=== PATIENT | male | born 1960 | race Caucasian/White ===

== ENCOUNTER 2017-09-23 07:23 | Outpatient (CLI) | payer BC ==
--- NOTE | 2017-09-23 08:38 | ULT ---
ABDOMINAL ULTRASOUND: History: Right upper quadrant pain. FINDINGS: Patient is post cholecystectomy. Common bile duct is within normal range at 4-5 mm. Liver is homogene ous and appears unremarkable. Aorta and IVC are only partially imaged but appear unremarkable as visu alized. Pancreas is obscured. Spleen appears unremarkable. Both kidneys are imaged and appear unremar kable. No hydronephrosis. IMPRESSION: Unremarkable abdominal ultrasound. POS: [facility]
== END 2017-09-23 07:24 | disposition home or self-care (01) ==
LOC: ULT 07:23
PROVIDERS: ATTEND Family Medicine
DX: R10.11 Right upper quadrant pain (principal)
CPT/HCPCS: 76700

== ENCOUNTER 2017-10-30 09:31 | Outpatient (CLI) | payer BC | END 2017-10-30 09:32 | disposition home or self-care (01) | LOC: BICRAD 09:31 | PROVIDERS: ATTEND Family Medicine | DX: R10.84 Generalized abdominal pain (principal) | CPT/HCPCS: 71046 ==

== ENCOUNTER 2018-06-30 14:31 | Inpatient (IN) | payer BC ==
[~2018-06-30 14:31] MED LIST: ISOVUE-370 76%-LOCM 1 ML ONE
[2018-06-30 15:19] LABS: Hemoglobin 17.7 g/dL (14.0-18.0); Mean Corpuscular HGB CONC 33.1 g/dL (32.0-36.0); Mean Corpuscular Volume 93.6 fL (78.0-98.0); Mean Platelet Volume 8.1 fL (7.4-10.4); Platelet Count 267 thou/uL (130-400); RBC Distribution Width 11.6 % (11.5-14.5); White Blood Cell (WBC) Count 14.2 thou/uL (4.8-10.8)
[2018-06-30] MEDS ORDERED: Ondansetron HCl/PF 4 MG/2 ML Vial ONE (15:24)
[2018-06-30 15:39] LABS: ALT (SGPT) 62 U/L (8-55); AST (SGOT) 77 U/L (5-34); Albumin 5.2 g/dL (3.5-5.0); Alkaline Phosphatase 68 U/L (40-150); Anion Gap 17 mmol/L (10-20); BUN (Urea Nitrogen) 19 mg/dL (8.4-25.7); Bilirubin, Total 1.3 mg/dL (0.2-1.2); Calc. Creatinine Clearance 0 mL/min (70-130); Calcium 10.6 mg/dL (7.8-10.44); Carbon Dioxide 24 mmol/L (22-29); Chloride 102 mmol/L (98-107); Estimated GFR-MDRD 49; Globulin 3.4 g/dL (2.4-3.5); Glucose 162 mg/dL (70-105); Lipase 16 U/L (8-78); Potassium 4.3 mmol/L (3.5-5.1); Protein, Total 8.6 g/dL (6.0-8.3); Sodium 139 mmol/L (136-145)
[2018-06-30 15:44] LABS: Band 9 % (5-11); Eosinophils 1 % (0-10); Lymphocytes 4 % (21-51); MDiff Complete? YES; Monocytes 3 % (0-10); Neutrophil 83 % (42-75); PLT Morphology Comment Appears Adequate
[2018-06-30] MEDS ORDERED: Lidocaine Viscous Sol 2% 15 ml UD Cup ONE (16:02)
--- NOTE | 2018-06-30 16:43 | CT ---
CT OF ABDOMEN AND PELVIS PERFORMED WITH IV CONTRAST ENHANCEMENT: Date: 06/30/18 HISTORY: Abdominal pain, cramping, vomiting, and diarrhea. FINDINGS: The lung bases are clear of any infiltrative process. The liver and spleen show no focal abnormalities. They are within normal limits of size. The pancreas shows no evidence of mass or ductal dilatation. The gallbladder has been removed. Right and left adrenal glands, and right and left kidneys are normal in size. Small hypodensity invol ving the lower pole left kidney is most likely a small cyst. There is no significant periaortic or me senteric lymphadenopathy. There is proximal small bowel distention, which the loops of bowel are somewhat fluid-filled. There i s a mild transition to more normal caliber ileum. The transition point occurs close to axial image 64 . At this level, there is somewhat abnormal appearing enhancement to the mucosa, and the wall of the colon over a fairly long segment in this area is somewhat more thick-walled than typically seen. Ther e is no pneumatosis. I do not see any signs of any vascular occlusion and there is no fat stranding w ithin the mesentery. CT of pelvis was performed with contrast enhancement. The appendix is normal. There is no adenopathy or mass. There is some trace free fluid present. IMPRESSION: Abnormalities of the small bowel. In this case, there is fluid-filled distention of the proximal smal l bowel with mild transition to less distended mid to distal ileum. Some of these mid to distal ileal loops show somewhat abnormal enhancement to the mucosa and are mildly thick-walled considering the d egree of decompression. I think the primary considerations would be some type of infectious enteritis and inflammatory enteritis entities such as Crohn's would have to be considered, although the termin al ileum appears less affected. In the proper setting, ischemic valve could have this appearance prem y on, although I do not see any other features that would suggest ischemia. I do not see any signs of any vascular occlusion, pneumatosis, or any edema change within the mesenteric fat to suggest this p ossibility. Clinical correlation would be recommended. POS: [facility]
--- NOTE | 2018-06-30 16:58 | RAD ---
CHEST 1 VIEW: Date: 06/30/18 HISTORY: Vomiting. NG tube placement. COMPARISON: 04/30/07. FINDINGS: NG tube with the distal tip likely at the GE junction. Advancement is recommended. Normal cardiac silhouette. Lungs and pleural spaces are clear. No pneumothorax or osseous abnormaliti es. IMPRESSION: Nasogastric tube as above. Consider advancing NG tube. POS: [facility]
[2018-06-30] MEDS ORDERED: Morphine 10 MG/ML VIAL ONE (19:04)
[2018-06-30 20:50] VITALS: BMI 30.7
[2018-06-30] MEDS ORDERED: Lorazepam 2 MG/ML VIAL SLOW IVP PRN (21:03)
[2018-06-30] MEDS: Sodium Chloride 0.9% 1,000 ML IV SCH (21:08)
[2018-06-30] MEDS ORDERED: Morphine 4 MG/ML Carpuject SLOW IVP PRN (21:10)
[2018-06-30 21:16] LABS: Bilirubin Large (Negative); Blood, Urine Negative (Negative); Clarity CLEAR (Clear); Glucose, Urine (Dipstick) Negative (Negative); Leukocyte Negative (Negative); Nitrite Negative (Negative); Protein, Urine (Dipstick) Negative (Neg-Trace); Urobilinogen 0.2 mg/dL (0.2-1.0)
[2018-06-30 21:17] LABS: Specific Gravity, Urine Greater than 1.060 (1.002-1.036)
[2018-06-30] MEDS ORDERED: Ondansetron ODT 4 MG TAB SL PRN (21:33)
[2018-06-30] MEDS ORDERED: Ondansetron HCl/PF 4 MG/2 ML Vial IVP PRN (21:33)
[2018-07-01] MEDS: Sodium Chloride 0.9% 1,000 ML IV SCH ×2 (00:10→06:27)
--- NOTE | 2018-07-01 02:50 | HP ---
DATE OF ADMISSION: 06/30/2018 PRIMARY CARE PHYSICIAN: Dr. Shawn Bartlett. CHIEF COMPLAINT: Abdominal pain, nausea, and vomiting. HISTORY OF PRESENT ILLNESS: This is a 58-year-old gentleman with a history of gastroesophageal reflu x disease, hypogonadism, who presents to the emergency department with worsening abdominal pain, naus ea, and vomiting. The patient states that he had an episode of diarrhea over the weekend about 3or 4 days ago it only lasted 1-2 days. He had no fevers, no bloody stools. The diarrhea resolved sponta neously. Then, today after eating breakfast, he developed some abdominal pain presented to Urgent Ca re for evaluation because of the pain continued to worsen. While in Urgent Care, he developed persis tent nausea and vomiting and they sent him to the emergency department for further evaluation. In ED, he was found to be [id number] dehydrated. On CT, he was found to have a small-bowel ob struction with thickened areas in the loops of small bowel. He is now being admitted for further rashi luation for acute small-bowel obstruction. He has had significant improvement of his symptoms with I V fluids as well as IV morphine and NG tube placement to suction. PAST MEDICAL HISTORY: Again hypogonadism on testosterone replacement, gastroesophageal reflux diseas e, persistent joint pains. MEDICATIONS: Include Ambien 10 mg at bedtime, omeprazole 40 mg daily, etodolac twice a day for pain, AndroGel once daily. ALLERGIES: PENICILLIN. PAST SURGICAL HISTORY: He had abdominal hernia about 10 years ago, right shoulder repair, history of cholecystectomy, EGD, and colonoscopy. SOCIAL HISTORY: He is , works at the [employer]. Drinks occasionally. No smoking, no other drug use. FAMILY HISTORY: Noncontributory. REVIEW OF SYSTEMS: As per the history of present illness. General: He denies any recent fevers, ch ills, or recent illness. HEENT: No headache, visual, or hearing changes. No history of upper respi ratory infection. Cardiac: Denies chest pain, shortness of breath, or palpitations. Pulmonary: De nies cough or hemoptysis. Gastrointestinal: As per the history of present illness. He denies any m sy. Respiratory: Denies history of ulcer disease. Genitourinary: He denies dysuria or hematuri a. Neurologic: No weakness, seizures, or syncope. PHYSICAL EXAMINATION: VITAL SIGNS: In the ED, temperature 97.5, pulse of 101, respirations 18, blood pressure 128/95, puls e ox 98% on room air. GENERAL: He is awake and alert, no acute distress. He appears comfortable lying in bed. NG tube is in place. Mucosa is moist. NECK: Supple. HEART: Regular rate and rhythm. LUNGS: Clear. ABDOMEN: With no bowel sounds, soft, diffuse tenderness, no rebound, no guarding. No peritoneal sig ns. No hepatosplenomegaly. EXTREMITIES: No clubbing, cyanosis, or edema, 2+ peripheral pulses bilaterally. LABORATORY AND X-RAY FINDINGS: White blood cell count elevated at 14,200, hemoglobin and hematocrit 17.7 and 53.4 with 83% neutrophils, 9% bands, 4% lymphocytes, platelets of 267. Sodium 139, potassiu m 4.3, chloride 102, CO2 of 24, BUN and creatinine 19 and 1.46 with a GFR of 49. Serum glucose of 16 2, calcium of 10.6 with an albumin of 5.2. AST and ALT are slightly elevated at 77 and 62 with a tot al bilirubin of 1.3, alkaline phosphatase is 68. Lipase is 16. Chest x-ray shows NG tube in place. NG tube was advanced after the chest x-ray. CT of the abdomen and pelvis done in the ED revealed ab normalities of the small bowel with fluid-filled distention, has normal enhancement with mild thicken ed wall consistent with enteritis, infectious versus inflammatory. ASSESSMENT AND PLAN: 1. This is a 58-year-old gentleman with an acute small-bowel obstruction and thickened wall of the s mall intestine. Plan, Dr. Martinez has been notified and he will be following with the patient as well. We will continue NG tube for decompression of his stomach. 2. Enteritis. We will start IV Levaquin and monitor, consult GI for evaluation as well. 3. Dehydration. We will continue IV fluid replacement while he is n.p.o. 4. History of gastroesophageal reflux disease. We will continue proton pump inhibitor therapy.
[2018-07-01 04:52] LABS: #Basophils 0.1 thou/uL (0.0-0.2); #Eosinphils 0.1 thou/uL (0.0-0.7); #Lymphocytes 1.6 thou/uL (1.20-3.40); #Monocytes 1.2 thou/uL (0.11-0.59); #Neutrophils 6.3 thou/uL (1.40-6.50); %Basophils 0.7 % (0.0-1.0); %Eosinophils 0.7 % (0.0-10.0); %Lymphocytes 17.3 % (21.0-51.0); %Neutrophils 68.3 % (42.0-75.0); Mean Corpuscular Hemoglobin 30.9 pg (27.0-31.0); Mean Corpuscular Volume 93.5 fL (78.0-98.0); Mean Platelet Volume 8.4 fL (7.4-10.4); Platelet Count 244 thou/uL (130-400); RBC Distribution Width 11.5 % (11.5-14.5); Red Blood Cell (RBC) Count 4.84 mill/uL (4.70-6.10); White Blood Cell (WBC) Count 9.3 thou/uL (4.8-10.8)
[2018-07-01 05:10] LABS: ALT (SGPT) 37 U/L (8-55); AST (SGOT) 37 U/L (5-34); Albumin 3.9 g/dL (3.5-5.0); Alkaline Phosphatase 45 U/L (40-150); Anion Gap 12 mmol/L (10-20); BUN (Urea Nitrogen) 19 mg/dL (8.4-25.7); Calc. Creatinine Clearance 109 mL/min (70-130); Calcium 8.5 mg/dL (7.8-10.44); Carbon Dioxide 24 mmol/L (22-29); Chloride 109 mmol/L (98-107); Estimated GFR-MDRD 74; Globulin 2.5 g/dL (2.4-3.5); Glucose 136 mg/dL (70-105); Potassium 4.2 mmol/L (3.5-5.1); Protein, Total 6.4 g/dL (6.0-8.3); Sodium 141 mmol/L (136-145)
[2018-07-01] MEDS: Pantoprazole 40 MG VIAL IVP SCH (08:39)
--- NOTE | 2018-07-01 09:04 | PRG ---
DATE OF SERVICE: 07/01/2018 SUBJECTIVE: A 58-year-old white male with a 2-day history of diarrhea. Friday evening he had C&J' s barbeque. On Friday and Friday he had diarrhea throughout the day, which then resolved. However, o n Friday morning he awoke with abdominal pain and presented to Urgent Care and was found to have a s mall-bowel obstruction. His diarrhea at that time had completely resolved. No reported history of f ever. He did have nausea and vomiting on Friday, which resolved. This morning the patient is feelin g much better. An NG tube is in place. He has received IV Levaquin. He does not recall giving any stool samples for cultures. OBJECTIVE: VITAL SIGNS: Temperature 98.3, pulse 90, respirations 18, pulse ox 93, blood pressure 120/70. GENERAL: No acute distress other than the NG tube in place. HEART: Regular rate and rhythm. LUNGS: Clear. ABDOMEN: Soft, nontender. EXTREMITIES: No edema. LABORATORY: White count decreased from 14.2 to 9.3. Electrolytes normal. Sodium 141, potassium 4.2 , CO2 24, creatinine 1.02, BUN 19. ASSESSMENT: 1. Small-bowel obstruction with abnormal CT showing small bowel wall thickening. Rule out infectiou s diarrhea, rule out Crohn's. The patient has had a GI workup in the past 2 years which was found to be unremarkable. 2. Diarrhea, rule out infection. 3. Dehydration. PLAN: 1. Consult General Surgery and consult GI. 2. Stool studies. 3. Continue IV hydration and antibiotics.
[2018-07-01] MEDS ORDERED: MD-Gastroview 120 ML BOT ONE (10:18)
--- NOTE | 2018-07-01 12:23 | RAD ---
SMALL BOWEL FOLLOW-THROUGH: HISTORY: Small bowel obstruction. COMPARISON: CT from the prior day. TECHNIQUE: The patient was given Gastrografin enteric contrast through the enteric tube. FINDINGS: There was quick transit of contrast through the small bowel. Within one hour, there was contrast wit hin the large bowel. IMPRESSION: No evidence of small bowel obstruction. POS: [facility]
--- NOTE | 2018-07-01 17:48 | CON ---
DATE OF CONSULTATION: 07/01/2018 SURGERY ATTENDING: Jemal Martinez DO ADMITTING PHYSICIAN: Yousif Garcia D.O. PRIMARY CARE PHYSICIAN: Shawn Bartlett M.D. REASON FOR CONSULTATION: Small-bowel obstruction. 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 The patient states over 2-3 days started having abdominal pain, worsening yesterday necessitating a trip to the emergency depart [facility]. It was associated with diarrhea, nausea, and large amount of vomiting. In the emergency depar tment, he had a large volume of emesis. An NG tube was placed and a CT scan demonstrated evidence of a bowel obstruction. The patient was admitted to Medicine, started on IV fluids, kept n.p.o., Levaq uin pain control. The patient's nausea has subsided. His gastric output was brisk initially, but rand s started to reside. Leukocytosis has improved. The patient is afebrile at home and T-max here is 9 9.5, states that he is feeling somewhat better. He has not passed flatus nor had a stool. His last normal stool was formed and yesterday. He has had no recent weight loss. No change in caliber of hi s stool and no hematochezia or hematemesis. No melena is reported. Patient has no chest pain, no br eathing trouble. He is feeling better. A small bowel follow through has been ordered for today. REVIEW OF SYSTEMS: Pertinent positive and negative per the HPI, otherwise regarded as negative on 12 -point review of systems. PAST MEDICAL HISTORY: 1. Gastroesophageal reflux disease and 2. Hypogonadism. PAST SURGICAL HISTORY: 1. Right shoulder repair. 2. Cholecystectomy. 3. Hernia repair 10 years ago, epigastric. ALLERGIES: PENICILLINS, causing a rash. MEDICATIONS: Ambien 5 mg nightly, testosterone gel 25 mg daily, Protonix 20 mg daily, Adalat 300 mg twice daily. FAMILY HISTORY: Father with type 2 diabetes and coronary artery disease. Paternal grandfather with NV. Maternal grandfather with lung and colon cancer and smoking. Mother was healthy. 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 He is a former smoker, quitting greater than 20 years ago. Socially drinks alcohol and denies any other illicit drug uses. PHYSICAL EXAMINATION: VITAL SIGNS: Most recent temperature is 98.4, blood pressure is 140/88, respiratory rate is 16, hear t rate is 90, and satting 96% on room air. GENERAL: A 58-year-old male sitting up in bed in no acute distress. He does have an NG tube in plac e. HEENT: Normocephalic, atraumatic. Trachea is midline. NECK: No JVD is appreciated. RESPIRATORY: Equal rise and fall bilaterally. Breath sounds clear to auscultation upper and lower b ilaterally. No rubs or wheezes and normal effort. CARDIOVASCULAR: Regular rate and rhythm. No murmurs are appreciated. Strong peripheral pulses and no edema. ABDOMEN: Soft, nontender. He has positive bowel sounds in all quadrants. No peritoneal signs are a ppreciated. GENITOURINARY: Deferred. NEUROLOGIC: Moves all extremities well. No gross deficits are appreciated. PSYCHIATRIC: Normal mood and affect. NEUROLOGIC: Alert and oriented to person, place, time, and event. SKIN: [place], warm and dry. DIAGNOSTIC DATA: Initial white blood cell count is 14,200 and is down to 9.3 today. Platelets are 2 44 this morning, hemoglobin and hematocrit 15.0 and 45.3 respectively. Chemistries today sodium 141, potassium 4.2, chloride is 109, CO2 is 24, BUN is 19, and creatinine initially 1.46 and 1.02, glucos e is 136, ALT 37, total bilirubin 1.0. CT does show air fluid levels. A chest x-ray from yesterday, which is clear. ASSESSMENT AND PLAN: 1. Small-bowel obstruction that is resolving. 2. Clinical dehydration that is improving. 3. History of gastroesophageal reflux disease and hypogonadism. RECOMMENDATIONS: 1. No increase in GI output. The patient is feeling better with no further nausea. A small bowel f ollow through demonstrates Gastrografin into the large intestine at 45 minutes. Therefore, removed t o the NG tube. 2. Start clear liquid diet and advance as tolerated. 3. The patient needs to have a bowel movement prior to discharge. 4. Recommend ambulation. 5. Continue Levaquin for now. The remainder of the supporting care per the primary team. We will continue to follow along until di deonterge. We appreciate the opportunity to assist in Mr. Yu's care. Mr. Yu was seen and evalua ulysses with Dr. Martinez at the bedside.
--- NOTE | 2018-07-01 20:26 | CON ---
DATE OF CONSULTATION: 07/01/2018 REASON FOR CONSULTATION: Bowel obstruction. HISTORY: Mr. Yu is a 58-year-old male who is known to me from outpatient evaluation. He was in h is usual state of health until yesterday when he developed sudden onset of diffuse abdominal cramps a ssociated with his distention. He had ensuing nausea. He presented to urgent care at which time he proceeded to have 2 episodes of bilious emesis. He denies any fever or chills. Leading up to this e vent, he has had 2 episodes of loose stool in the preceding day. Patient had an abdominopelvic CT wi th contrast in the emergency room that showed a transition zone in the distal ileum. He had a small bowel series early today that demonstrated normal flow through the small bowel into the colon without any evidence of obstruction. Currently, he feels fine, almost back to his baseline. He is doing well otherwise from discharge standpoint. There is no further nausea or vomiting. His a ppetite had been normal. His bowel function had been normal. There is no indication of GI bleeding. The patient had a negative EGD and colonoscopy in 09/2017. Last year, he had a negative outpatient CT and ultrasound in 04/2017 for evaluation of chronic recurrent but infrequent right upper quadrant pain. This was assumed to be adhesions from his previous cholecystectomy in 2005. PAST MEDICAL HISTORY: 1. GE reflux disease. 2. Status post cholecystectomy in 2005. 3. Abdominal wall hernia repair 10 years ago. 4. Right shoulder surgery. ALLERGIES: PENICILLIN. MEDICATIONS AT HOME: Include etodolac b.i.d., AndroGel daily, omeprazole 40 mg every day, and Ambien 10 mg at bedtime p.r.n. SOCIAL HISTORY: Patient is . He has infrequent alcohol consumption. No tobacco usage. FAMILY HISTORY: Negative for any known GI problem, liver disease, GI malignancy. REVIEW OF SYSTEMS: Ten-point review of systems did not show any other pertinent positive or negative . PHYSICAL EXAMINATION: VITAL SIGNS: Temperature is 98.4, blood pressure 140/88, pulse of 90. GENERAL: He is alert, conversant, in no distress. HEENT: Shows anicteric sclerae. Oropharynx is clear. NECK: Supple. CARDIOVASCULAR: Shows normal S1, S2. Regular rate and rhythm. CHEST: Shows breath sounds. ABDOMEN: Soft, no tympany. He has bowel sounds. There is no tenderness. No hepatosplenomegaly by palpation. EXTREMITIES: Shows no edema. LABORATORY DATA: WBC is 9.3, hemoglobin 15, hematocrit 45.3%, platelet count of 244. Electrolytes w ithin normal range, creatinine 1.02. LFTs are normal, lipase of 16. IMAGING DATA: Abdominopelvic CT yesterday showed suggestion transition zone in the distal ileum with proximal dilation associated with some abnormal enhancement of the mucosa. Small bowel series today was normal with good flow of contrast into the colon. ASSESSMENT: Patient admitted with clinical features and radiographic evidence of distal small-bowel obstruction. I suspect this is likely from adhesions rather than from any inflammatory or infectious process. It is very unlikely that he has any small bowel Crohn's disease. Currently, he feels fine with small bowel series not demonstrating any ongoing small bowel obstruction. RECOMMENDATIONS: 1. Advance diet to full liquids and a regular diet in the morning. If he can tolerate this, can be discharged to home. 2. At the present time, no further evaluation is indicated from GI standpoint. However, if he shows recurrent signs of obstruction or pain, we will further evaluate for small bowel inflammatory diseas e such as Crohn's.
[2018-07-02 07:38] VITALS: BP 115/74; TEMP 97.9
[2018-07-02] MEDS: Pantoprazole 40 MG VIAL IVP SCH (08:12)
--- NOTE | 2018-07-02 12:09 | DIS ---
DATE OF ADMISSION: 06/30/2018 DATE OF DISCHARGE: 07/02/2018 DISCHARGE DIAGNOSES: 1. Small-bowel obstruction, resolved. 2. Abdominal adhesions. 3. Diarrhea, resolved. 4. Dehydration, resolved. CONSULTANTS: Dr. Martinez and Dr. Hirsch. DISCHARGE MEDICATIONS: Ambien 10 at bedtime p.r.n., omeprazole 40 daily, etodolac 400 b.i.d. p.r.n., AndroGel daily. BRIEF HISTORY: A 58-year-old white male with history of reflux, hypogonadism, presents to the emerge ncy room with worsening abdominal pain, nausea and vomiting. He had an episode of diarrhea 3-4 days prior, which resolved. He had no fever or bloody stools. Then, on the day of admission after breakf ast, he developed acute onset of abdominal pain, which became progressively worse and presented to [facility]. He was referred to the ER. In the Emergency Department, he was found to have mild to moderately dehydrated and a CT scan revealed small-bowel obstruction with thickened areas of small b owel. HOSPITAL COURSE: The patient was admitted. NG tube was placed. IV fluids were given. Dr. Martinez an d Dr. Hirsch were consulted. Within 24 hours, the patient improved dramatically. The NG tube was toni bozena. Abdominal pain resolved spontaneously. The patient most likely has adhesions causing a mechani jero obstruction. This resolved spontaneously. The patient does have a history of chronic right uppe r quadrant abdominal pain, most likely secondary to adhesions. He is doing well at this time. [facility], I have informed him that this event can likely recur. Hopefully, this will recur rarely. In the worst-case scenario, he will require surgery to take down those adhesions.
== END 2018-07-02 08:55 | disposition home or self-care (01) | DRG 390 ==
LOC: ERS 14:31 → SURG A 16:47
PROVIDERS: ADMIT Family Medicine; ATTEND Family Medicine
DX: K56.50 Intestinal adhesions [bands], unspecified as to partial versus complete obstruction (principal); E86.0 Dehydration; R19.7 Diarrhea, unspecified; K21.9 Gastro-esophageal reflux disease without esophagitis; E29.1 Testicular hypofunction
CPT/HCPCS: 36415; 71045; 74177; 74250; 80053; 81003; 83690; 85025; 96361; 96374; 96375; 96376; A4216; C9113; J1956; J2060; J2270; J2405

== ENCOUNTER 2020-06-30 12:33 | Outpatient (CLI) | payer BC, OTHER ==
--- NOTE | 2020-06-30 15:22 | CT ---
CT ABDOMEN PELVIS WITHOUT IV CONTRAST: HISTORY:Hematuria, unspecified type COMPARISON: Contrast-enhanced exam dated 06/30/2018 DISCLAIMER: Absence of oral and IV contrast reduces the sensitivity of the exam particularly for the evaluation of solid organs and bowel. FINDINGS: There is mild scarring versus atelectatic change at the lung bases. No free air or free fluid is seen in the abdomen or pelvis. The patient is post cholecystectomy. No calculi are seen in the kidneys, ureters or the urinary bladder. No hydroureteronephrosis is noted in either side. The prostate is enlarged. The small bowel loops are not abnormally dilated. A normal-appearing appendix is present. There are v ascular calcifications without evidence of aneurysmal dilatation of the abdominal aorta. A circumaortic left renal vein is present. No osteolytic or osteoblastic lesions are identified. There are bilateral fat-containing inguinal hernia. IMPRESSION: 1. No CT evidence of urinary tract calculi or obstruction. 2. Prostatic enlargement.
== END 2020-06-30 12:34 | disposition home or self-care (01) ==
LOC: SCSCT 12:33
PROVIDERS: ATTEND Family Medicine
DX: R31.9 Hematuria, unspecified (principal); N40.0 Benign prostatic hyperplasia without lower urinary tract symptoms
CPT/HCPCS: 74176

== ENCOUNTER 2020-12-18 23:58 | Emergency (ER) | payer BC | END 2020-12-19 01:31 | disposition home or self-care (01) | LOC: ERS 23:58 | DX: R07.81 Pleurodynia (principal); M25.571 Pain in right ankle and joints of right foot; F10.129 Alcohol abuse with intoxication, unspecified; W01.198A Fall on same level from slipping, tripping and stumbling with subsequent striking against other object, initial encounter; K21.9 Gastro-esophageal reflux disease without esophagitis; R73.03 Prediabetes | CPT/HCPCS: 70450; 71045; 72125 ==

== ENCOUNTER 2021-09-13 11:54 | Outpatient (CLI) | payer BC ==
[2021-09-13 13:38] LABS: #Basophils 0.1 10x3/uL (0.0-0.2); #Eosinphils 0.2 10x3/uL (0.0-0.5); #Monocytes 0.9 10x3/uL (0.0-1.1); #Neutrophils 4.4 10x3/uL (1.5-8.4); %Basophils 0.7 % (0.0-2.0); %Eosinophils 2.5 % (0.0-6.0); %Lymphocytes 32.9 % (18.0-47.0); %Neutrophils 52.5 % (40.0-75.0); Hemoglobin 15.1 g/dL (13.5-17.5); Mean Corpuscular HGB CONC 34.2 g/dL (32.0-36.0); Mean Corpuscular Hemoglobin 31.5 pg (27.0-33.0); Mean Corpuscular Volume 91.9 fl (81.2-95.1); Mean Platelet Volume 10.3 fl (7.4-10.4); Platelet Count 241 10x3/uL (150-450); RBC Distribution Width 12.2 % (11.5-14.5); White Blood Cell (WBC) Count 8.4 10x3/uL (3.5-10.5)
[2021-09-14 11:58] LABS: SARS-CoV-2 PCR by NAA Not Detected (NotDetected)
== END 2021-09-13 11:55 | disposition home or self-care (01) ==
LOC: LABBT 11:54
PROVIDERS: ATTEND Orthopaedic Surgery Hand Surgery
DX: Z01.818 Encounter for other preprocedural examination (principal); M65.311 Trigger thumb, right thumb; Z20.822 Contact with and (suspected) exposure to COVID-19
CPT/HCPCS: 85025; 93005; 93010; U0003; U0005

== ENCOUNTER 2021-09-17 12:50 | Day surgery (SDC) | payer BC ==
[2021-09-13 13:38] VITALS: BMI 34.2
[2021-09-17] MEDS ORDERED: ceFAZolin 2 GM/DEX 5% 100 ML BAG ONE (14:18)
[2021-09-17] MEDS ORDERED: Bupivacaine PF 0.5% 30 ML VIAL ONE (15:14)
[2021-09-17] MEDS ORDERED: Betamet Acet/Betamet Na Ph 30 MG/5 ML VIAL ONE (15:14)
[2021-09-17] MEDS ORDERED: Bacitracin Zinc Ointment 30 gm TUBE ONE (15:14)
[2021-09-17] MEDS ORDERED: Fentanyl 100 MCG/2 ML VIAL ONE (15:27)
[2021-09-17] MEDS ORDERED: Vancomycin 1 GM/200 ML BAG ONE (15:36)
[2021-09-17] MEDS ORDERED: Ketorolac Tromethamine 30 MG/ML VIAL ONE (15:51)
[2021-09-17] MEDS ORDERED: Dexamethasone 20 MG/5 ML VIAL ONE (15:51)
[2021-09-17] MEDS ORDERED: Ondansetron PF 4 MG/2 ML Vial ONE (15:51)
[2021-09-17] MEDS ORDERED: Lidocaine 1% PF 5 ML VIAL ONE (15:51)
[2021-09-17] MEDS ORDERED: PROPOFOL 200 MG/20 ML VIAL ONE (15:51)
== END 2021-09-17 18:15 | disposition home or self-care (01) ==
LOC: SDC 12:50
PROVIDERS: ATTEND Orthopaedic Surgery Hand Surgery
PROC: 0LN70ZZ Release Right Hand Tendon, Open Approach (ICD-10-PCS; principal; 2021-09-17)
DX: M65.311 Trigger thumb, right thumb (principal); M65.841 Other synovitis and tenosynovitis, right hand; E78.5 Hyperlipidemia, unspecified; E11.9 Type 2 diabetes mellitus without complications; K21.9 Gastro-esophageal reflux disease without esophagitis; Z87.891 Personal history of nicotine dependence; Z79.84 Long term (current) use of oral hypoglycemic drugs; Z79.899 Other long term (current) drug therapy; Z88.0 Allergy status to penicillin
CPT/HCPCS: J0702; J1100; J1885; J2405; J2704; J3010; J3370; S0020

== ENCOUNTER 2023-09-09 14:44 | Outpatient (CLI) | payer BC | END 2023-09-09 14:45 | disposition home or self-care (01) | LOC: BICRAD 14:44 | PROVIDERS: ATTEND Family Medicine | DX: R07.9 Chest pain, unspecified (principal); J98.4 Other disorders of lung | CPT/HCPCS: 71046 ==

== ENCOUNTER 2024-04-05 15:10 | Outpatient (CLI) | payer BC | END 2024-04-05 15:11 | disposition home or self-care (01) | LOC: BICULT 15:10 | PROVIDERS: ATTEND Family Medicine | DX: R31.9 Hematuria, unspecified (principal); N39.43 Post-void dribbling | CPT/HCPCS: 76770 ==